=== PATIENT | female | born 1950 | race Caucasian/White ===

== ENCOUNTER 2016-09-11 09:58 | Day surgery (SDC) | payer MEDICARE, OTHER ==
[~2016-09-11] VITALS: Ht 154.9 cm; Wt 59.0 kg
[~2016-09-11 09:58] MED LIST: 0.9% Sodium Chloride 1,000 ML IV SCH; ASPI-973 PO; CALC-51 PO; CALC650T4 PO; CHOL100043 PO; DIGE1CAP PO; SACC250C8 PO; Sodium Chloride LOK Flush 10 mL Syringe IV PRN; VENL-57 PO; VITA100C22 PO; fentaNYL-PF 50 mCg/mL 2 mL Inj IVPUSH PRN
[2016-09-11 10:24] VITALS: BP 149/82; PULSE 73; RESP 16; O2SAT 98
--- NOTE | 2016-09-11 11:18 | PCM.ENDEGD ---
EGD Date of Service: Sep 11, 2016 Physician Jimbo Amaro MD Pre Procedure Diagnosis: Epigastric pain Post Procedure Dx & Findings: Atrophic gastropathy possible Suh's Procedure Esophagogastroduodenoscopy PROCEDURE IN DETAIL: After proper sedation, Olympus video endoscope was inserted into patient's mouth and esophagus was successfully intubated. Scope introduced esophagus. Esophagus showed normal shiny whitish mucosa consistent with squamous cell component. Z line was not intact at 37 cm from the incisors. There was 2 cm tongue of salmon-colored mucosa. Four-quadrant biopsies obtained. Scope further advanced to the stomach. The entire stomach showed atrophic mucosa. Minimal rugae folds are noted. The mucosal pattern along the the fundus and the body of the stomach appears as though there were flat polypoid structures. Multiple biopsies obtained from the antrum to the fundus. Biopsy of these flat polypoid structures as well as the surrounding mucosa or taking using cold forceps.. Cardia fundus body antrum pylorus were all visualized. Retroflexion was done. Stomach was easily inflated and deflatable using air. Scope further advanced to the distal duodenum. Duodenum revealed normal villous structures with normal appearing folds without any mass ulcer erosion. 5 biopsies obtained. 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 Recommendation Await biopsies Follow up in GI clinic with Dr Margaret Chirinos Presedation Assessment Risks and Benefits Informed consent was obtained from the patient after all risks and benefits including but not limited to drug reaction, infection, pain, bleeding, perforation, as well as alternatives were discussed. Patient monitoring Continuous pulse oximetry, cardiac monitoring, blood pressure monitoring, IV access, and oxygen at 2L per nasal cannula. Periprocedural Fentanyl: Fentanyl 100mcg Incrementally Midazolam: Midazolam 4mg Incrementally Complications There were no periprocedural complications identified. Post Procedure Plan Post Procedure Recommendations 1. Restrict activities today. 2. Resume normal activities in the morning. 3. Resume medications. 4. GERD behavioral modification: - Avoid fatty, acidic, spicy, large meals - Do not lie down after meals - Do not eat or drink anything for at least 2 1/2 hours before going to bed at night - Discontinue tobacco and alcohol - Decrease or avoid caffeine - Avoid chocolate and mints - Decrease weight - Avoid aspirin and non steroidal anti-inflammatory agents (NSAID) such as Aleve, Advil, Mobic, Naproxen, Ibuprofen, etc 5. Add proton pump inhibitor. Take 30 minutes before 1st meal of the day. 6. Patient informed of normal post procedure side effects as bloating, drowsiness, blood streaking in the stool 7. If gastric biopsy reveal H.pylori, continue with appropriate treatment 8. If small bowel biopsy reveals celiac, continue with appropriate treatment 9. Please don't hesitate to call me with any questions Jimbo Amaro MD Sep 11, 2016 11:18
[2016-09-11 11:21] VITALS: BP 134/70; PULSE 73; RESP 16; O2SAT 94
[2016-09-11 11:30] VITALS: BP 127/69; PULSE 70; RESP 16; O2SAT 98
[2016-09-11 11:40] VITALS: BP 134/70; PULSE 65; RESP 16; O2SAT 100
--- NOTE | 2016-09-12 10:53 | PATH ---
SURGICAL PATHOLOGY Attending Physician:Jimbo Amaro M.D. CASE STATUS: Signed Out PATIENT NAME: ANNETTA ALEMAN PID: [id number] : 1950 DATE COLLECTED:09/11/2016 20:32 SPECIMEN: 1: Duodenum, Biopsy 2: Gastric, Biopsy 3: Esophagus, Biopsy CLINICAL HISTORY: 1). DUODENAL BIOPSY 2). RANDOM GASTRIC 3). DISTAL ESOPHAGUS FINAL DIAGNOSIS: 1.DUODENAL BIOPSY: CHANGES OF CHRONIC DUODENITIS WITH FOCAL AREAS OF FOVEOLAR METAPLASIA. Negative for evidence of celiac disease. Negative for dysplasia and malignancy. 2.RANDOM GASTRIC BIOPSIES: DIFFUSE, MILD TO MODERATE CHRONIC GASTRITIS INVOLVING FUNDIC MUCOSA. Immunohistochemistry for Helicobacter pending, to be reported by addendum. Negative for intestinal metaplasia. Negative for dysplasia and malignancy. 3.DISTAL ESOPHAGUS BIOPSY: FRAGMENTS OF SQUAMOUS MUCOSA AND GASTRIC CARDIA-TYPE MUCOSA NEGATIVE FOR SPECIALIZED METAPLASIA OF [place]' S-TYPE ESOPHAGUS. Negative for dysplasia and malignancy. Negative for squamous intraepithelial eosinophils. ICD10 K29.70 GROSS DESCRIPTION: The specimen is received in three formalin filled containers labeled with the patient's name. 1). The specimen is sublabeled "duodenal" and consists of 3 portions of tissue which aggregate to 0.3 x 0.3 x 0.2 CM. The specimen is entirely submitted in cassette 1A. 2). The specimen is sublabeled "gastric" and consists of 4 portions of tissue which aggregate to 0.3 x 0.3 x 0.2 CM. The specimen is entirely submitted in cassette 2A. 3). The specimen is sublabeled "distal esophagus" and consists of 4 portions of tissue which aggregate to 0.3 x 0.3 x 0.2 CM. The specimen is entirely submitted in cassette 3A. 09/11/2016 [facility] MICRO DESCRIPTION: See diagnosis. ICD-9 CODES: CPT CODES: 1: 55599 2: 69768, 86122 3: 19826 PROCEDURE/ADDENDA: Immunohistochemistry SPI Interpretation {Not Entered} Results-Comments IMMUNOHISTOCHEMISTRY RESULTS 2.RANDOM GASTRIC BIOPSIES: NEGATIVE FOR HELICOBACTER PYLORI BY IMMUNOHISTOCHEMISTRY. This test was developed and its performance characteristics determined by [employer]. It has not been cleared or approved by the [place]. Food and Drug Administration. The FDA has determined that such clearance or approval is not necessary. This test is used for clinical purposes. It should not be regarded as investigational or for research. Electronically Signed Out Jarrod Brown MD Electronically Signed Out Jarrod Brown MD [facility] Pathology [facility] [address], [place] [address] Technical component performed at [facility], [facility] [address], [place], [address]
== END 2016-09-11 23:59 | disposition home or self-care (01) ==
LOC: END 09:58
PROVIDERS: ATTEND Internal Medicine
DX: R10.13 Epigastric pain (principal); K29.80 Duodenitis without bleeding; K29.50 Unspecified chronic gastritis without bleeding
CPT/HCPCS: 43239; G0500; J7030